=== PATIENT | male | born 1980 | race African-American/Black ===

== ENCOUNTER 2022-08-10 23:25 | Emergency (ER) | payer OTHER, MEDICAID ==
[~2022-08-10] VITALS: Ht 167.6 cm; Wt 76.2 kg
[2022-08-10] MEDS ORDERED: IPRATROPIUM BROM 0.5 MG/2.5ML INH SOL ONE (23:58)
[2022-08-10] MEDS ORDERED: ALBUTEROL MEDNEB 2.5 mg/3ml NEB ONE (23:58)
[2022-08-11] MEDS ORDERED: DexAMETHasone SOD PHOS 10MG/1ML VIAL INJ IM ONE
[2022-08-11] MEDS ORDERED: cloNIDine HCL 0.1 MG TAB PO ONE
[2022-08-11] MEDS ORDERED: IPRATROPIUM BROM 0.5 MG/2.5ML INH SOL NEB ONE
[2022-08-11] MEDS ORDERED: ALBUTEROL SULF 2.5 MG/0.5ML(0.5%) NEB SOLN NEB ONE
[2022-08-11] MEDS ORDERED: ALBU108A5 IN (00:48)
[2022-08-11 01:43] VITALS: BP 152/100
== END 2022-08-11 01:44 | disposition home or self-care (01) ==
LOC: ER 23:25
DX: J45.901 Unspecified asthma with (acute) exacerbation (principal)
CPT/HCPCS: 94640; 96372; 99283; J1100; J7644